=== PATIENT | female | born 1960 | race Caucasian/White ===

== ENCOUNTER 2017-08-19 11:00 | Outpatient (CLI) | payer BC | END 2017-08-19 11:01 | disposition home or self-care (01) | LOC: BICBD 11:00 | PROVIDERS: ATTEND Internal Medicine | DX: Z12.31 Encounter for screening mammogram for malignant neoplasm of breast (principal); Z13.820 Encounter for screening for osteoporosis; M85.852 Other specified disorders of bone density and structure, left thigh | CPT/HCPCS: 77063; 77067; 77080 ==

== ENCOUNTER 2020-10-10 12:29 | Observation (INO) | payer MEDICARE ==
[2020-10-10 13:21] LABS: #Basophils 0.1 thou/uL (0.0-0.2); #Eosinphils 0.1 thou/uL (0.0-0.7); #Monocytes 0.5 thou/uL (0.11-0.59); #Neutrophils 3.8 thou/uL (1.40-6.50); %Basophils 1.4 % (0.0-1.0); %Eosinophils 1.8 % (0.0-10.0); %Lymphocytes 39.5 % (21.0-51.0); %Monocytes 6.9 % (0.0-10.0); %Neutrophils 50.4 % (42.0-75.0); Hemoglobin 14.6 g/dL (12.0-16.0); Mean Corpuscular HGB CONC 33.1 g/dL (32.0-36.0); Mean Corpuscular Hemoglobin 33.6 pg (27.0-31.0); Mean Platelet Volume 8.5 fL (7.4-10.4); Platelet Count 281 thou/uL (130-400); RBC Distribution Width 12.9 % (11.5-14.5); Red Blood Cell (RBC) Count 4.36 mill/uL (4.20-5.40); White Blood Cell (WBC) Count 7.5 thou/uL (4.8-10.8)
[2020-10-10] MEDS ORDERED: methylPREDNISolone Sod Succ/PF 125 MG/2 ML VIAL ONE (13:25)
[2020-10-10] MEDS ORDERED: Magnesium 2 GM/50 ML BAG (IN WATER) ONE (13:25)
--- NOTE | 2020-10-10 13:34 | RAD ---
Portable chest: HISTORY: Short of breath COMPARISON: none FINDINGS: Lung castillo are clear. Heart and mediastinum appear unremarkable. Vascularity is normal. Visualized osseous structures unremarkable. IMPRESSION: No acute finding
[2020-10-10 13:41] LABS: ALT (SGPT) 16 U/L (8-55); AST (SGOT) 16 U/L (5-34); Albumin 3.8 g/dL (3.4-4.8); Alkaline Phosphatase 49 U/L (40-110); Anion Gap 12 mmol/L (10-20); BUN (Urea Nitrogen) 10 mg/dL (9.8-20.1); Bilirubin, Total 0.3 mg/dL (0.2-1.2); Calc. Creatinine Clearance 0 mL/min (70-130); Calcium 8.7 mg/dL (7.8-10.44); Carbon Dioxide 21 mmol/L (23-31); Chloride 107 mmol/L (98-107); Globulin 3.2 g/dL (2.4-3.5); Glucose 140 mg/dL (80-115); Potassium 3.6 mmol/L (3.5-5.1); Sodium 136 mmol/L (136-145)
[2020-10-10] MEDS ORDERED: Albuterol 200 PUFF (6.7GM INHALER) ONE (13:41)
[2020-10-10 15:45] LABS: Free T4 (Free Thyroxine) 0.98 ng/dL (0.70-1.48)
[2020-10-10] MEDS ORDERED: Aspirin 325 MG TAB ONE (17:07)
[2020-10-10 17:43] LABS: Magnesium 1.9 mg/dL (1.6-2.6)
[2020-10-10 17:47] LABS: Phosphorus 1.8 mg/dL (2.3-4.7)
[2020-10-10 18:10] LABS: Troponin I Less than 0.010 ng/mL (< 0.028)
[2020-10-10] MEDS ORDERED: Acetaminophen 650 MG Suppository PR PRN (18:14)
[2020-10-10] MEDS ORDERED: Acetaminophen 325 MG TAB PO PRN (18:14)
[2020-10-10] MEDS ORDERED: Electrolyte Replacement Protocol FS SCH (18:15)
[2020-10-10] MEDS ORDERED: Potassium Phosphate 30 MMOL in Sodium Chloride 0.9% 500 ML IVPB SCH (18:30)
[2020-10-10 18:48] LABS: SARS-CoV-2 NAA Rapid Test Not Detected (NotDetected)
--- NOTE | 2020-10-10 20:24 | PDOC.HHP ---
Hospitalist HPI History of Present Illness: ADMISSION DATE: 10/10/2020 TIME OF ASSESSMENT: 1700 PRIMARY CARE PHYSICIAN:Dr. Martinez CHIEF COMPLAINT: Shortness of breath and weakness HPI: This is a 60-year-old woman who presents to the emergency department with complaints of generalized weakness that occurred abruptly earlier today after she woke up this morning at approximately 7 AM. States she walked to the bathroom and became winded. She has not been experiencing any shortness of breath with exertion prior to today. States she had gotten up around 1:00 in the morning and had a couple coffee at that time before going back to sleep at around 5 AM when her was waking up to go to work. She eventually got up again at around 11 AM which is when she began to note she was feeling unwell. She reports having difficulty with insomnia which has been chronic. Denies having any chest pain or palpitations. No nausea or vomiting. No diaphoresis. Has not had any recent fevers, chills or sweats. Reports a chronic cough associated with smoking but it is dry and denies noting any hemoptysis. No lower leg swelling or edema. Has not had any changes with her appetite. Continues to eat and drink well. Denies any changes with her bowel movements or urinary symptoms. All other review systems are negative. She currently smokes 1 pack/day but denies having any underlying COPD. Does not use any inhalers or nebulizer treatments. Does not have any history of shortness of breath or wheezing. ED COURSE: On arrival to the emergency department she had a temp of 97.6, BP 127/81, HR 79, RR 24, O2 sat 100%. She had laboratory studies done that showed a white count of 7.5, hemoglobin 14.6, hematocrit 44.3, platelets 281, neutrophils 55.4%. D-dimer 0.27. Sodium 136, potassium 3.6, BUN 10, creatinine 0.83, GFR 61, glucose 140, calcium 9.7, phosphorus 1.8, magnesium 1.9, LFTs normal. Troponin negative. Free T3 1.63, TSH 13.7054. Free T4 0.98. Chest x-ray demonstrated no acute finding. EKG was done showing a normal sinus rhythm with a heart of 71. No ST changes or T wave abnormalities present. In the ER she received 324 mg of aspirin. Had not experienced any chest pain at any point and initial troponin was negative. She was given 2 g of magnesium sulfate as well as Proventil and methylprednisolone 125 mg IV for her breathing. The patient was not hypoxic at any point during her time in the emergency department. Her saturations ranged from 94 to 100% on room air. Patient was requested for work-up of dyspnea on exertion. Allergies/Adverse Reactions: Allergy/AdvReac Type Severity Reaction Status Date / Time No Known Allergies Allergy Unverified 10/10/20 18:20 Past History: PAST MEDICAL HISTORY: 1. Obesity 2. Hyperlipidemia 3. Hypothyroidism 4. Bipolar disorder PAST SURGICAL HISTORY: 1. 2. Surgery for brain aneurysm SOCIAL HISTORY: The patient lives with her . She is fully dependent at baseline. Reports smoking 1 pack of cigarettes per day. Denies any alcohol consumption or drug use. FAMILY HISTORY: Noncontributory Hospitalist Exam Vitals: VS: Temp 98.4, BP 118/66, HR 72, RR 20, O2 sat 97% on room air. General Appearance: NAD, awake alert Eye: PERRL, anicteric sclera ENT: normocephalic atraumatic, no oropharyngeal lesions, moist mucosa Neck: supple, no lymphadenopathy Heart: RRR, no murmur, normal peripheral pulses Respiratory: CTAB, no wheezes, no rales, no ronchi, normal chest expansion Gastrointestinal: soft, non-tender, non-distended, normal bowel sounds Extremities: no edema Skin: normal turgor, no lesions, no rashes Neurological: cranial nerve grossly intact, normal sensation to touch Musculoskeletal: normal tone, normal strength, no muscle wasting Psychiatric: normal affect, normal behavior, A&O x 3 Hospitalist Results Result Diagrams: 10/10/20 13:13 10/10/20 13:13 Lab results: Laboratory Last Values WBC 7.5 thou/uL (4.8-10.8) 10/10/20 13:13 RBC 4.36 mill/uL (4.20-5.40) 10/10/20 13:13 Hgb 14.6 g/dL (12.0-16.0) 10/10/20 13:13 Hct 44.3 % (36.0-47.0) 10/10/20 13:13 MCV 101.0 fL (78.0-98.0) H 10/10/20 13:13 MCH 33.6 pg (27.0-31.0) H 10/10/20 13:13 MCHC 33.1 g/dL (32.0-36.0) 10/10/20 13:13 RDW 12.9 % (11.5-14.5) 10/10/20 13:13 Plt Count 281 thou/uL (130-400) 10/10/20 13:13 MPV 8.5 fL (7.4-10.4) 10/10/20 13:13 Neutrophils % 50.4 % (42.0-75.0) 10/10/20 13:13 Lymphocytes % 39.5 % (21.0-51.0) 10/10/20 13:13 Monocytes % 6.9 % (0.0-10.0) 10/10/20 13:13 Eosinophils % 1.8 % (0.0-10.0) 10/10/20 13:13 Basophils % 1.4 % (0.0-1.0) H 10/10/20 13:13 Neutrophils # 3.8 thou/uL (1.40-6.50) 10/10/20 13:13 Lymphocytes # 3.0 thou/uL (1.20-3.40) 10/10/20 13:13 Monocytes # 0.5 thou/uL (0.11-0.59) 10/10/20 13:13 Eosinophils # 0.1 thou/uL (0.0-0.7) 10/10/20 13:13 Basophils # 0.1 thou/uL (0.0-0.2) 10/10/20 13:13 D-Dimer 0.27 *mcg/mL (0.27-0.43) 10/10/20 16:19 Sodium 136 mmol/L (136-145) 10/10/20 13:13 Potassium 3.6 mmol/L (3.5-5.1) 10/10/20 13:13 Chloride 107 mmol/L (98-107) 10/10/20 13:13 Carbon Dioxide 21 mmol/L (23-31) L 10/10/20 13:13 Anion Gap 12 mmol/L (10-20) 10/10/20 13:13 BUN 10 mg/dL (9.8-20.1) 10/10/20 13:13 Creatinine 0.93 mg/dL (0.6-1.1) 10/10/20 13:13 Estimated GFR (MDRD) 61 10/10/20 13:13 Glucose 140 mg/dL (80-115) H 10/10/20 13:13 Calcium 8.7 mg/dL (7.8-10.44) 10/10/20 13:13 Phosphorus 1.8 mg/dL (2.3-4.7) L 10/10/20 13:13 Magnesium 1.9 mg/dL (1.6-2.6) 10/10/20 13:13 Total Bilirubin 0.3 mg/dL (0.2-1.2) 10/10/20 13:13 AST 16 U/L (5-34) 10/10/20 13:13 ALT 16 U/L (8-55) 10/10/20 13:13 Alkaline Phosphatase 49 U/L (40-110) 10/10/20 13:13 Troponin I Less than 0.010 ng/mL (< 0.028) 10/10/20 17:29 Serum Total Protein 7.0 g/dL (5.8-8.1) 10/10/20 13:13 Albumin 3.8 g/dL (3.4-4.8) 10/10/20 13:13 Globulin 3.2 g/dL (2.4-3.5) 10/10/20 13:13 Albumin/Globulin Ratio 1.2 g/dL (1.2-2.2) 10/10/20 13:13 Free T4 0.98 ng/dL (0.70-1.48) 10/10/20 13:13 Free T3 1.63 pg/mL (1.71-3.71) L 10/10/20 13:13 TSH 3rd Generation 13.7054 uIU/mL (0.35-4.94) H 10/10/20 13:13 Influenza A RNA INAAT Not Detected (NotDetected) 10/10/20 17:57 Influenza B RNA INAAT Not Detected (NotDetected) 10/10/20 17:57 SARS-CoV-2 Rap RNA(RT-PCR) Not Detected (NotDetected) 03/02/21 17:57 Chest x-ray Status: report reviewed by me Hospitalist H&P A/P (1) Generalized weakness Code(s): R53.1 - WEAKNESS Status: Acute Assessment and Plan: Somewhat improved, no neuro deficits one exam Labs notable for low potassium which will be replaced Will obtain UA/UCx to rule out underlying UTI PT/OT consulted (2) Shortness of breath on exertion Code(s): R06.02 - SHORTNESS OF BREATH Status: Acute Assessment and Plan: Monitor o2 sats COVID testing currently pending Check BNP No evidence of fluid overload, if elevated consider echo No indication to continue with steroids (3) Hypophosphatemia Code(s): E83.39 - OTHER DISORDERS OF PHOSPHORUS METABOLISM Status: Acute Assessment and Plan: Replacement ordered Recheck with AM labs Check vitamin D and Folate Check PTH (4) Tobacco abuse Code(s): Z72.0 - TOBACCO USE Status: Chronic Assessment and Plan: Tobacco cessation education (5) Hypothyroidism Code(s): E03.9 - HYPOTHYROIDISM, UNSPECIFIED Status: Chronic Assessment and Plan: Resume home meds once verified, may need further adjustment (6) Hyperlipidemia Code(s): E78.5 - HYPERLIPIDEMIA, UNSPECIFIED Status: Chronic Assessment and Plan: Resume statin once dose verified (7) Bipolar disorder Code(s): F31.9 - BIPOLAR DISORDER, UNSPECIFIED Status: Chronic Assessment and Plan: Resume home meds as appropriate once verified Plan: GI Prophylaxis with Famotidine DVT Prophylaxis with Mechanical SCDs and Lovenox CODE STATUS FULL Case discussed with attending who agrees with plan as above.
[2020-10-10 21:15] LABS: Troponin I 0.015 ng/mL (< 0.028)
[2020-10-10] MEDS: Famotidine 20 MG TAB PO SCH (22:24)
[2020-10-10 22:34] VITALS: BMI 29.9
[2020-10-11 00:18] LABS: Vitamin D, 25 Hydroxy 42.2 ng/ml (> 30.0)
[2020-10-11 00:30] LABS: Vitamin B12 Greater than 2000 pg/mL (211-911)
[2020-10-11 01:08] LABS: Bacteria/HPF None Seen HPF (None Seen); Bilirubin Negative (Negative); Blood, Urine Negative (Negative); Clarity Clear (Clear); Glucose, Urine (Dipstick) 100 mg/dL (Negative); Ketone, Urine Negative (Negative); Leukocyte Negative Leu/uL (Negative); Nitrite Negative (Negative); Protein, Urine (Dipstick) Negative (Neg-Trace); RBC/HPF 0-3 HPF (0-3); Specific Gravity, Urine 1.011 (1.002-1.036); Squamous Epithelial 0-3 HPF (0-3); Urobilinogen Normal mg/dL (Less than 2); WBC/HPF 0-3 HPF (0-3); pH, Urine 6.5 (5.0-9.0)
[2020-10-11 01:16] LABS: Urine Culture Reflex No No
[2020-10-11 01:19] LABS: Amphetamine Not Detected (NotDetected); Barbiturates Screen Not Detected (NotDetected); Benzodiazepine Screen Not Detected (NotDetected); Cocaine Metabolite Screen Not Detected (NotDetected); Medtox Control Line Valid? VALID (VALID); Medtox Reader # READER 4; Methadone Not Detected (NotDetected); Methamphetamine Not Detected (NotDetected); Opiate Screen Not Detected (NotDetected); Oxycodone Screen Not Detected (NotDetected); Phencyclidine (PCP) Not Detected (NotDetected); THC/Cannabinoid Screen Not Detected (NotDetected); Tricyclic Screen Not Detected (NotDetected)
[2020-10-11 04:54] LABS: #Lymphocytes 1.5 thou/uL (1.20-3.40); #Monocytes 0.4 thou/uL (0.11-0.59); #Neutrophils 9.7 thou/uL (1.40-6.50); %Basophils 0.4 % (0.0-1.0); %Lymphocytes 13.1 % (21.0-51.0); %Monocytes 3.7 % (0.0-10.0); %Neutrophils 82.8 % (42.0-75.0); Hemoglobin 14.1 g/dL (12.0-16.0); Mean Corpuscular HGB CONC 31.6 g/dL (32.0-36.0); Mean Corpuscular Hemoglobin 32.2 pg (27.0-31.0); Mean Platelet Volume 8.6 fL (7.4-10.4); Platelet Count 274 thou/uL (130-400); Red Blood Cell (RBC) Count 4.38 mill/uL (4.20-5.40); White Blood Cell (WBC) Count 11.8 thou/uL (4.8-10.8)
[2020-10-11 05:19] LABS: Anion Gap 15 mmol/L (10-20); BUN (Urea Nitrogen) 12 mg/dL (9.8-20.1); Calc. Creatinine Clearance 107 mL/min (70-130); Carbon Dioxide 16 mmol/L (23-31); Chloride 106 mmol/L (98-107); Glucose 138 mg/dL (80-115); Potassium 4.4 mmol/L (3.5-5.1); Sodium 133 mmol/L (136-145)
[2020-10-11] MEDS ORDERED: Magnesium 2 GM/50 ML 2 GM in Premix Bag 1 BAG IVPB SCH (07:00)
[2020-10-11] MEDS: Famotidine 20 MG TAB PO SCH ×2 (08:37→21:20)
[2020-10-11] MEDS: Enoxaparin Sodium 40 MG/0.4 ML SYRINGE SC SCH (08:37)
--- NOTE | 2020-10-11 16:49 | PDOC.HOSPP ---
- Subjective Encounter Date: 10/11/20 Subjective: Deconditioned. Mental status is intact. No cardiopulmonary distress. - Objective Vital Signs & Weight: Vital Signs (12 hours) Temp Pulse Pulse Resp BP BP BP 10/11/20 16:00 98.1 F 73 18 108/64 10/11/20 11:57 80 101/59 L 90/54 L 10/11/20 11:39 97.7 F 67 18 91/54 L 10/11/20 09:46 85 91/50 L 10/11/20 07:47 98.2 F 74 18 114/62 Pulse Ox Pulse Ox 10/11/20 16:00 99 10/11/20 11:57 100 10/11/20 11:39 99 10/11/20 09:46 10/11/20 07:47 97 Weight Weight 180 lb I&O: 10/10/20 10/11/20 10/12/20 06:59 06:59 06:59 Intake Total 1000 Output Total 100 Balance 900 Result Diagrams: 10/11/20 04:42 10/11/20 04:42 Hospitalist ROS - Medication Medications: Active Medications Generic Name Dose Route Start Last Admin Trade Name Freq PRN Reason Stop Dose Admin Enoxaparin Sodium 40 mg 10/11/20 09:00 10/11/20 08:37 Enoxaparin Sodium 40 Mg/0.4 Ml Syringe SC 40 mg 0900 KAMILAH Administration Famotidine 20 mg 10/10/20 21:00 10/11/20 08:37 Famotidine 20 Mg Tab PO 20 mg BID KAMILAH Administration Hospitalist Exam Vitals: Vital Signs (12 hours) Temp Pulse Pulse Resp BP BP BP 10/11/20 16:00 98.1 F 73 18 108/64 10/11/20 11:57 80 101/59 L 90/54 L 10/11/20 11:39 97.7 F 67 18 91/54 L 10/11/20 09:46 85 91/50 L 10/11/20 07:47 98.2 F 74 18 114/62 Pulse Ox Pulse Ox 10/11/20 16:00 99 10/11/20 11:57 100 10/11/20 11:39 99 10/11/20 09:46 10/11/20 07:47 97 Weight Weight 180 lb General Appearance: awake alert General - other findings: Severely deconditioned Eye: anicteric sclera ENT: normocephalic atraumatic Heart: RRR, no murmur Respiratory: CTAB, no wheezes, no rales, no ronchi Gastrointestinal: soft, non-tender, non-distended Extremities: no edema Musculoskeletal: generalized weakness Psychiatric: lethargic Hosp A/P (1) Generalized weakness Code(s): R53.1 - WEAKNESS Status: Acute (2) Hypophosphatemia Code(s): E83.39 - OTHER DISORDERS OF PHOSPHORUS METABOLISM Status: Acute (3) Shortness of breath on exertion Code(s): R06.02 - SHORTNESS OF BREATH Status: Acute (4) Bipolar disorder Code(s): F31.9 - BIPOLAR DISORDER, UNSPECIFIED Status: Chronic (5) Hyperlipidemia Code(s): E78.5 - HYPERLIPIDEMIA, UNSPECIFIED Status: Chronic (6) Hypothyroidism Code(s): E03.9 - HYPOTHYROIDISM, UNSPECIFIED Status: Chronic (7) Tobacco abuse Code(s): Z72.0 - TOBACCO USE Status: Chronic - Plan Assessment Patient is a 60-year-old female with a past medical history of tobacco smoking, obesity, hyperlipidemia, hypothyroidism and bipolar disorder. She was admitted to the hospital with complaints of generalized weakness and mild shortness of breath. Pulmonary work-up was negative clubbing Covid testing. She is doing well on room air. Was found to have elevated TSH with decreased free T3 level. Ongoing issue with the patient is weak and deconditioned. She has a weakness but no pain. Generalized weakness Hypophosphatemia Tobacco smoking Hyperlipidemia Hypothyroidism Obesity Bipolar disorder Plan: Check for CPK Start patient on high dose of levothyroxine. She was taking 125 mcg at home. I will place her on 200 mcg daily Monitor thyroid function test in 4 to 6 weeks after discharge Replace phosphorus Resume her psych meds Continue PT/OT while in-house DVT prophylaxis with Lovenox GI prophylaxis with famotidine
[2020-10-11] MEDS ORDERED: Sodium Phosphate 30 MMOL in Sodium Chloride 0.9% 250 ML 250 ML IVPB SCH (17:00)
[2020-10-11] MEDS ORDERED: RisperDAL Oral Solution 1 MG/ML UDCUP PO SCH (21:00)
[2020-10-11] MEDS ORDERED: Divalproex Sodium DR 500 MG TAB PO SCH (21:00)
[2020-10-12] MEDS ORDERED: Levothyroxine Sodium 100 MCG TAB PO SCH (06:00)
[2020-10-12] MEDS: Famotidine 20 MG TAB PO SCH (08:11)
[2020-10-12] MEDS: Enoxaparin Sodium 40 MG/0.4 ML SYRINGE SC SCH (08:11)
[2020-10-12] MEDS ORDERED: Atorvastatin Calcium 40 MG TAB PO SCH (09:00)
[2020-10-12] MEDS ORDERED: Citalopram 20 MG TAB PO SCH (09:00)
[2020-10-12] MEDS ORDERED: Bupropion 150 MG XL TAB PO SCH (09:00)
[2020-10-12] MEDS ORDERED: Cyanocobalamin (Vitamin B-12) 1,000 MCG TAB PO SCH (09:00)
[2020-10-12] MEDS ORDERED: Multivit, Therapeutic 1 TAB PO SCH (09:00)
[2020-10-12 09:24] LABS: #Basophils 0.1 thou/uL (0.0-0.2); #Eosinphils 0.1 thou/uL (0.0-0.7); #Lymphocytes 4.4 thou/uL (1.20-3.40); #Monocytes 0.7 thou/uL (0.11-0.59); #Neutrophils 6.7 thou/uL (1.40-6.50); %Basophils 0.8 % (0.0-1.0); %Eosinophils 0.8 % (0.0-10.0); %Lymphocytes 36.6 % (21.0-51.0); %Monocytes 5.6 % (0.0-10.0); %Neutrophils 56.3 % (42.0-75.0); Mean Corpuscular Hemoglobin 33.8 pg (27.0-31.0); Mean Platelet Volume 8.6 fL (7.4-10.4); Platelet Count 269 thou/uL (130-400); RBC Distribution Width 13.1 % (11.5-14.5); Red Blood Cell (RBC) Count 4.13 mill/uL (4.20-5.40); White Blood Cell (WBC) Count 11.9 thou/uL (4.8-10.8)
[2020-10-12 12:06] VITALS: BP 112/64; TEMP 98
--- NOTE | 2020-10-12 13:45 | PDOC.DS.DS ---
Provider Date of Admission: 10/10/20 17:24 Date of Discharge: 10/12/20 Admitting Provider: Abdulaziz Jurado MD Primary Care Physician: BRIANA MANJARREZ MD Course Hospital Course: Patient is a 60-year-old female with a past medical history of tobacco smoking, obesity, hyperlipidemia, hypothyroidism and bipolar disorder. She was admitted to the hospital with complaints of generalized weakness and mild shortness of breath. She was found to have elevated TSH with decreased free T3 level. Her levothyroxine was increased from 125 mcg to 200. She made a rapid recovery over the next day. She was able to ambulate to the bathroom without assistance, her energy and mood much improved. I had initially requested placement for her based on how she was deconditioned during our first encounter. However, given this improvement, she will most likely function independently at home and do well. She will need to follow up with her PCP in 4-6 weeks for thyroid function test. Resuscitation Status: 10/10/20 18:14 Resuscitation Status Routine Co-Sign Provider: Resuscitation Status: FULL: Full Resuscitation Lab Results: 10/12/20 09:09 10/11/20 04:42 Abnormal Lab Results - Last 48 hrs 10/10/20 00:40: Urine Glucose (UA) 100 A 10/10/20 13:13: Carbon Dioxide 21 L 10/10/20 13:13: TSH 3rd Generation 13.7054 H 10/10/20 13:13: Free T3 1.63 L 10/10/20 13:13: Phosphorus 1.8 L 10/10/20 23:19: Vitamin B12 Greater than 2000 H 10/11/20 04:42: Sodium 133 L, Carbon Dioxide 16 L 10/11/20 04:42: WBC 11.8 H, MCV 102.0 H, MCH 32.2 H, MCHC 31.6 L, Neutrophils % 82.8 H, Lymphocytes % 13.1 L, Neutrophils # 9.7 H 10/12/20 09:09: WBC 11.9 H, RBC 4.13 L, MCV 102.0 H, MCH 33.8 H, Neutrophils # 6.7 H, Lymphocytes # 4.4 H, Monocytes # 0.7 H Vitals: Vital Signs (12 hours) Temp Pulse Resp BP Pulse Ox 10/12/20 12:04 98 F 66 18 112/64 100 10/12/20 07:30 98.1 F 61 18 114/61 97 10/12/20 04:00 97.2 F L 64 18 123/66 100 Weight Weight 180 lb Physical Exam: The patient was seen and examined on the day of discharge. General Appearance: awake alert General - other findings: More energetic Eye: anicteric sclera ENT: normocephalic atraumatic Respiratory: CTAB, no wheezes, no ronchi Cardiovascular: RRR, no murmur Extremities: no edema Neurological: cranial nerve grossly intact PSYCH: normal affect, normal behavior Problem (1) Generalized weakness Code(s): R53.1 - WEAKNESS Status: Acute (2) Hypophosphatemia Code(s): E83.39 - OTHER DISORDERS OF PHOSPHORUS METABOLISM Status: Acute (3) Shortness of breath on exertion Code(s): R06.02 - SHORTNESS OF BREATH Status: Acute (4) Bipolar disorder Code(s): F31.9 - BIPOLAR DISORDER, UNSPECIFIED Status: Chronic (5) Hyperlipidemia Code(s): E78.5 - HYPERLIPIDEMIA, UNSPECIFIED Status: Chronic (6) Hypothyroidism Code(s): E03.9 - HYPOTHYROIDISM, UNSPECIFIED Status: Chronic (7) Tobacco abuse Code(s): Z72.0 - TOBACCO USE Status: Chronic Plan Prescriptions: Levothyroxine Sodium [Synthroid] 200 mcg PO 0600 #30 tab Home Medications: Medication Instructions Recorded Confirmed Type Atorvastatin Calcium 40 mg PO DAILY 10/10/20 10/10/20 History Citalopram [CeleXA] 20 mg PO DAILY 10/10/20 10/10/20 History Cyanocobalamin (Vitamin B-12) 2,500 mcg PO DAILY 10/10/20 10/10/20 History [Vitamin B12] Divalproex Sodium [Depakote] 1,000 mg PO HS 10/10/20 10/10/20 History Multivit, Therapeutic [Theragran] 1 tab PO DAILY 10/10/20 10/10/20 History buPROPion HCl [Wellbutrin XL] 300 mg PO QAM 10/10/20 10/10/20 History risperiDONE [Risperidone] 0.5 mg PO HS 10/10/20 10/10/20 History Famotidine [Pepcid] 20 mg PO BID tab 10/12/20 Rx Levothyroxine Sodium [Synthroid] 200 mcg PO 0600 #30 tab 10/12/20 Rx Allergies: No Known Allergies Allergy (Unverified 10/10/20 18:20) Discharge Instructions:: Please follow up with your PCP. You will need a repeat thyroid function test in 4-6 weeks. Referrals: BRIANA MANJARREZ MD [Primary Care Provider] - Disposition: HOME Quality CORE MEASURES:: N/A
--- NOTE | 2020-10-14 16:49 | EKG ---
Test Reason : SOB Blood Pressure : / mmHG Vent. Rate : 071 BPM Atrial Rate : 071 BPM P-R Int : 140 ms QRS Dur : 092 ms QT Int : 410 ms P-R-T Axes : 054 029 029 degrees QTc Int : 445 ms Normal sinus rhythm Possible Left atrial enlargement RSR' or QR pattern in V1 suggests right ventricular conduction delay Borderline ECG Confirmed by DEBBY BELLE M.D. ([id number]), content editor STACIA MCKEON ([id number]) on 10/14/2020 4:49:04 PM Referred By: Confirmed By:DEBBY BELLE M.D.
== END 2020-10-12 15:37 | disposition home or self-care (01) ==
LOC: ERS 12:29 → 2NO 17:24
PROVIDERS: ADMIT Internal Medicine; ATTEND Internal Medicine
DX: R53.1 Weakness (principal); R06.02 Shortness of breath; F17.210 Nicotine dependence, cigarettes, uncomplicated; G47.00 Insomnia, unspecified; E78.5 Hyperlipidemia, unspecified; E03.9 Hypothyroidism, unspecified; F31.9 Bipolar disorder, unspecified; E83.39 Other disorders of phosphorus metabolism; E66.9 Obesity, unspecified; Z68.30 Body mass index [BMI] 30.0-30.9, adult; Z79.899 Other long term (current) drug therapy; Z20.822 Contact with and (suspected) exposure to COVID-19
CPT/HCPCS: 0240U; 71045; 80048; 80306; 81001; 82306; 82550; 82607; 82746; 83735 ×2; 83880; 84100; 84425; 84439; 84481; 84484 ×2; 85025 ×2; 85379; 93005; 94640; 94664; 94760; 96365; 96375; 97116; 97139 ×2; 99285; 36415; 80053; 84443; 96366; 96367; 96372; G0378; J1650; J2930; J3475; J7030; J7050

== ENCOUNTER 2021-02-08 13:01 | Outpatient (CLI) | payer MEDICARE | END 2021-02-08 13:02 | disposition home or self-care (01) | LOC: BICMAMMO 13:01 | PROVIDERS: ATTEND Internal Medicine | DX: Z12.31 Encounter for screening mammogram for malignant neoplasm of breast (principal); Z13.820 Encounter for screening for osteoporosis; M85.89 Other specified disorders of bone density and structure, multiple sites | CPT/HCPCS: 77063; 77067; 77080 ==

== ENCOUNTER 2021-05-25 05:50 | Emergency (ER) | payer MEDICARE | END 2021-05-25 06:50 | disposition home or self-care (01) | LOC: ERS 05:50 | DX: M54.50 Low back pain, unspecified (principal); M54.6 Pain in thoracic spine; E78.5 Hyperlipidemia, unspecified; E03.9 Hypothyroidism, unspecified; F17.210 Nicotine dependence, cigarettes, uncomplicated | CPT/HCPCS: 99283 ==

== ENCOUNTER 2022-07-17 12:53 | Outpatient (CLI) | payer MEDICARE | END 2022-07-17 12:54 | disposition home or self-care (01) | LOC: BICMAMMO 12:53 | PROVIDERS: ATTEND Internal Medicine | DX: Z12.31 Encounter for screening mammogram for malignant neoplasm of breast (principal) | CPT/HCPCS: 77063; 77067 ==

== ENCOUNTER 2022-11-12 07:37 | Outpatient (CLI) | payer MEDICARE | END 2022-11-12 07:38 | disposition home or self-care (01) | LOC: BICULT 07:37 | PROVIDERS: ATTEND Internal Medicine | DX: R10.13 Epigastric pain (principal) | CPT/HCPCS: 76700 ==

== ENCOUNTER 2023-10-19 13:02 | Emergency (ER) | payer MEDICARE ==
[~2023-10-19 13:02] MED LIST: Iopamidol-370 76% 500 ML MDV (1 ML CHARGE) ONE
[2023-10-19] MEDS ORDERED: Ondansetron PF 4 MG/2 ML Vial ONE (14:01)
[2023-10-19] MEDS ORDERED: Pantoprazole 40 MG VIAL ONE (14:02)
[2023-10-19 14:44] LABS: #Basophils 0.1 thou/uL (0.0-0.2); #Eosinphils 0.1 thou/uL (0.0-0.7); #Monocytes 0.5 thou/uL (0.11-0.59); #Neutrophils 6.6 thou/uL (1.40-6.50); %Basophils 0.7 % (0.0-1.0); %Eosinophils 0.7 % (0.0-10.0); %Lymphocytes 19.3 % (21.0-51.0); %Monocytes 5.6 % (0.0-10.0); %Neutrophils 73.3 % (42.0-75.0); Hematocrit 44.5 % (36.0-47.0); Mean Corpuscular HGB CONC 33.7 g/dL (32.0-36.0); Mean Corpuscular Hemoglobin 30.5 pg (27.0-31.0); Mean Corpuscular Volume 90.4 fl (78.0-98.0); Platelet Count 280 10x3/uL (130-400); RBC Distribution Width 16.6 % (11.5-14.5); Red Blood Cell (RBC) Count 4.92 mill/uL (4.20-5.40)
[2023-10-19 14:52] LABS: ALT (SGPT) 11 U/L (8-55); AST (SGOT) 14 U/L (5-34); Albumin 4.7 g/dL (3.4-4.8); Alkaline Phosphatase 86 U/L (40-110); Anion Gap 15 mmol/L (10-20); BUN (Urea Nitrogen) 18 mg/dL (9.8-20.1); Bilirubin, Total 0.5 mg/dL (0.2-1.2); Calc. Creatinine Clearance 0 mL/min (70-130); Calcium 9.8 mg/dL (7.8-10.44); Carbon Dioxide 24 mmol/L (23-31); Chloride 106 mmol/L (98-107); Estimated GFR 56; Globulin 3.1 g/dL (2.4-3.5); Glucose 121 mg/dL (80-115); Lipase 19 U/L (8-78); Potassium 3.9 mmol/L (3.5-5.1); Protein, Total 7.8 g/dL (5.8-8.1); Sodium 141 mmol/L (136-145)
[2023-10-19 14:56] LABS: Troponin I 0.019 ng/mL (< 0.028)
== END 2023-10-19 16:35 ==
LOC: ERS 13:02
DX: R10.84 Generalized abdominal pain (principal); R68.81 Early satiety; E78.5 Hyperlipidemia, unspecified; E03.9 Hypothyroidism, unspecified; F17.210 Nicotine dependence, cigarettes, uncomplicated; Z79.899 Other long term (current) drug therapy
CPT/HCPCS: 36415; 71045; 74177; 80053; 83690; 84484; 85025; 93005; 96374; 96375; C9113; J2405; Q9967